=== PATIENT | female | born 1950 | race Caucasian/White ===

== ENCOUNTER → 2023-06-07 | Outpatient (CLI) | payer MEDICARE ==
[~2023-06-07] MED LIST: Iohexol 300 - 100 ML VIAL IV ONE; NS 100 ML IV SCH
== END ==
LOC: COL.RAD 08:51
DX: R91.8 Other nonspecific abnormal finding of lung field (principal); K44.9 Diaphragmatic hernia without obstruction or gangrene
CPT/HCPCS: Q9967